=== PATIENT | female | born 1955 | race African-American/Black ===

== ENCOUNTER 2018-02-15 10:14 | Observation (INO) ==
--- NOTE | 2018-02-15 11:04 | XR ---
EXAM DATE: 02/15/2018 10:57 AM EDT AGE/SEX: 62 years / Female INDICATIONS: Mid chest pain. CLINICAL DATA: This is the patient's initial encounter. Patient reports that signs and symptoms have been present for 2 days and indicates a pain score of 4/10. MEDICAL/SURGICAL HISTORY: Hypertension. None. COMPARISON: No prior exams available for comparison. FINDINGS: PA and lateral views of the chest demonstrate a normal-sized cardiac silhouette. There is no effusion , consolidation, or pneumothorax. The bones and soft tissues demonstrate no acute abnormality. There are degenerative changes of the thoracic spine. CONCLUSION: No acute cardiopulmonary abnormality is identified. Electronically signed by: Michael Oakley MD 02/15/2018 11:03 AM EDT
[2018-02-15 12:06] LABS: Baso # (Auto) 0.1 th/mm3 (0.0-0.2); Baso % (Auto) 1.1 % (0.0-2.0); Eos # (Auto) 0.1 th/mm3 (0.0-0.4); Eos % (Auto) 1.3 % (0.0-4.0); Hematocrit 37.6 % (35.0-46.0); Hemoglobin 12.6 gm/dL (11.6-15.3); Lymph # (Auto) 1.9 th/mm3 (1.0-4.8); Lymph % (Auto) 24.6 % (9.0-44.0); Mean Corpuscular HGB Conc 33.4 % (32.0-36.0); Mean Corpuscular Hemoglobin 28.4 pg (27.0-34.0); Mean Platelet Volume 9.5 fL (7.0-11.0); Mono # (Auto) 0.5 th/mm3 (0.0-0.9); Neut # (Auto) 5.3 th/mm3 (1.8-7.7); Platelet Count 193 th/mm3 (150-450); Red Blood Count 4.42 mil/mm3 (4.00-5.30); Red Cell Distribution Width 14.6 % (11.6-17.2); White Blood Count 7.9 th/mm3 (4.0-11.0)
[2018-02-15 12:18] LABS: Activated Partial Thrombo Time 26.1 sec (24.3-30.1); Prothrombin Time 10.4 sec (9.8-11.6)
[2018-02-15 12:30] LABS: Anion Gap 10 meq/L (5-15); Blood Urea Nitrogen 16 mg/dL (7-18); Calcium 8.9 mg/dL (8.5-10.1); Carbon Dioxide 25.6 meq/L (21.0-32.0); Chloride 106 meq/L (98-107); Glomerular Filtration Rate 86 mL/min (>89); Glucose,Random 88 mg/dL (74-106); Magnesium 2.2 mg/dL (1.5-2.5); Potassium 3.1 meq/L (3.5-5.1); Sodium 142 meq/L (136-145)
[2018-02-15 12:34] LABS: Creatine Kinase 121 U/L (26-192)
[2018-02-15 12:46] LABS: Creatine Kinase MB 1.6 ng/mL (0.5-3.6)
--- NOTE | 2018-02-15 15:07 | ED ---
HPI General Chief Complaint: Chest Pain Stated Complaint: Chest Pain Time Seen by Provider: 02/15/18 14:55 Source: patient Mode of arrival: ambulatory Limitations: no limitations History of Present Illness HPI narrative: 62-year-old female presents emergency department with complaints of discomfort in the mid sternal chest since yesterday. She says that she was working yesterday when the pain started. Patient says the pain is located midsternal chest without radiation. Described as dull, squeezing. Says the pain has fluctuated in intensity and currently is mild at the worst. Says today she was at work when she drank a Pepsi. Says that she subsequently vomited and decided to come in today for evaluation. She denies associated signs or symptoms. Says she has a history of hypertension but does not take any medication for this. She has a history of hypokalemia diagnosed several years ago but does not report any issues with this. Denies hyperlipidemia, diabetes. States she has a family history of CVA but this is distant relatives. Says she had a stress test approximately 8 years ago which was normal. MD complaint: chest pain Complete Quality Measures for STEMI Alert Patients Onset (ago): day(s) Duration: constant Onset: during rest Pain location: substernal Severity: mild Relieving factors: nothing Exacerbating factors: other (Leaning forward) Related Data Allergies Allergy/AdvReac Type Severity Reaction Status Date / Time Sulfa (Sulfonamide Allergy Hives Verified 02/15/18 10:36 Antibiotics) Review of Systems Except as stated in HPI: all other systems reviewed are negative [facility] Social History Social History Second Hand Smoke Exposure: No Smoking Status: Former smoker Tobacco Type: Cigarettes How Often Do You Have a Drink Containing Alcohol: Monthly or less Recent Travel in [facility] within the Last 8 Weeks: No Recent Out of Country Travel within the Last 8 Weeks: No Exam Narrative Exam Narrative: GENERAL: Well developed, nourished in no apparent distress SKIN: Focused skin assessment warm/dry. HEAD: Atraumatic. Normocephalic. EYES: Pupils equal and round. No scleral icterus. No injection or drainage. ENT: No nasal bleeding or discharge. Mucous membranes pink and moist. NECK: Trachea midline. No JVD. CARDIOVASCULAR: Regular rate and rhythm. No murmur appreciated. RESPIRATORY: No accessory muscle use. Clear to auscultation. Breath sounds equal bilaterally. GASTROINTESTINAL: Abdomen soft, non-tender, nondistended. Hepatic and splenic margins not palpable. MUSCULOSKELETAL: No obvious deformities. No clubbing. No cyanosis. No edema. No TTP to chest wall. NEUROLOGICAL: Awake and alert. No obvious cranial nerve deficits. Motor grossly within normal limits. Normal speech. PSYCHIATRIC: Appropriate mood and affect; insight and judgment normal. Course Initial Documented Vital Signs Temperature 98.6 F 02/15/18 10:34 Pulse Rate 101 H 02/15/18 10:34 Respiratory Rate 20 02/15/18 10:34 Blood Pressure 153/86 H 02/15/18 10:34 Pulse Oximetry 100 02/15/18 10:34 Last Documented Vital Signs Temperature 98.6 F 02/15/18 10:34 Pulse Rate 92 H 02/15/18 15:35 Respiratory Rate 17 02/15/18 15:35 Blood Pressure 121/77 02/15/18 15:35 Pulse Oximetry 100 02/15/18 15:35 Clinical Decision Support HEART Score Questions History: Slightly suspicious EKG: Non-specific repolarization disturbance Age: 45-64 years Risk Factors: 1-2 Risk Factors Initial Troponin: Normal Limit Heart Score HEART Score: 3 Medical Decision Making CLARK Attestation CLARK supervised visit: Yes Attestation: I, Dr. Shi, have reviewed the advance practice practitioner's documentation and am in agreement, met with the patient face to face, made the diagnosis, and the medical decision making was done by me. *My assessment and Findings: The patient is awake and alert and in no distress at this time. Initial labs and EKG are unremarkable. This patient does have risk factors for coronary artery disease. Her symptoms sound concerning. She will be admitted to the chest pain center for further evaluation. Please see Katalina Lai PA-C's note for a more detailed H&P, final diagnosis and disposition MDM Narrative Medical decision making narrative: 62-year-old female presents emergency department for evaluation of chest pain that started yesterday. EKG shows sinus rhythm at rate 97 bpm. Labs and imaging studies ordered. Cardiac enzymes negative. Labs are unremarkable except for mild hypokalemia which appears to be chronic. Potassium 40 mEq administered. ASA 162 mg administered. Offered patient medication for her discomfort however, she declined. Discussed chest pain center admission. She agreed. Differential Diagnosis Differential Diagnosis: ACS, atypical chest pain, chest pain Lab Data Result diagrams: 02/15/18 11:22 02/15/18 11:22 Lab Results 02/15/18 02/15/18 02/15/18 Range/Units 11:22 11:22 11:22 WBC 7.9 (4.0-11.0) th/mm3 RBC 4.42 (4.00-5.30) mil/mm3 Hgb 12.6 (11.6-15.3) gm/dL Hct 37.6 (35.0-46.0) % MCV 85.0 (80.0-100.0) fL MCH 28.4 (27.0-34.0) pg MCHC 33.4 (32.0-36.0) % RDW 14.6 (11.6-17.2) % Plt Count 193 (150-450) th/mm3 MPV 9.5 (7.0-11.0) fL Neut % (Auto) 67.0 (16.0-70.0) % Lymph % (Auto) 24.6 (9.0-44.0) % Lander % (Auto) 6.0 (0.0-8.0) % Eos % (Auto) 1.3 (0.0-4.0) % Baso % (Auto) 1.1 (0.0-2.0) % Neut # (Auto) 5.3 (1.8-7.7) th/mm3 Lymph # (Auto) 1.9 (1.0-4.8) th/mm3 Lander # (Auto) 0.5 (0.0-0.9) th/mm3 Eos # (Auto) 0.1 (0.0-0.4) th/mm3 Baso # (Auto) 0.1 (0.0-0.2) th/mm3 WBC Differential . Differential Comment Auto diff final PT 10.4 (9.8-11.6) sec INR 1.0 Ratio APTT 26.1 (24.3-30.1) sec Sodium 142 (136-145) meq/L Potassium 3.1 L (3.5-5.1) meq/L Chloride 106 (98-107) meq/L Carbon Dioxide 25.6 (21.0-32.0) meq/L Anion Gap 10 (5-15) meq/L BUN 16 (7-18) mg/dL Creatinine 0.82 (0.50-1.00) mg/dL Estimated GFR 86 L (>89) mL/min Random Glucose 88 (74-106) mg/dL Calcium 8.9 (8.5-10.1) mg/dL Magnesium 2.2 (1.5-2.5) mg/dL Total Creatine Kinase 121 (26-192) U/L CK-MB (CK-2) 1.6 (0.5-3.6) ng/mL Troponin I Less than 0.02 L (0.02-0.05) ng/mL Imaging Data Radiologist's impression: Chest X-Ray 02/15/18 10:37 CONCLUSION: No acute cardiopulmonary abnormality is identified. Discharge Plan Discharge Disposition Patient Disposition: 30 Still Patient Discharge Condition Condition: Stable Discharge Details Diagnosis: Chest pain, Chronic hypokalemia Physicians Team ED Provider: Pebbles Shi ED Midlevel Provider: Katalina Lai Primary Care Provider: [facility], Attending Provider: John Jeffers Status ED Status: Admitted Observation Patient
[2018-02-15] MEDS ORDERED: Acetaminophen 500 MG Tablet PO PRN (15:22)
--- NOTE | 2018-02-15 18:57 | ECG ---
Date Performed: 02/15/2018 Time Performed: 11:47:14 PTAGE: 62 years EKG: Sinus rhythm INFERIOR MYOCARDIAL INFARCTION ABNORMAL ECG Compared to PREVIOUS TRACING , old inferior infarct pattern is new. PREVIOUS TRACIN02/15/2018 11.0 8 DOCTOR: Elton Merino Interpretating Date/Time 02/15/2018 18:56:07
[2018-02-15 21:45] LABS: Creatine Kinase 150 U/L (26-192)
--- NOTE | 2018-02-16 10:24 | P.HPCA ---
History of Present Illness Primary Care Physician: [facility] Chief Complaint: Chest pain History of Present Illness: This is a 62-year-old female that presents to ED via private vehicle with a complaint of developing a discomfort in the center of her chest that began Thursday around 6:00 in the morning and was constantly there for 2 days. It went away sometime yesterday. Found nothing to worsen or improve it. She denies having shortness of breath, nausea, or diaphoresis. Denies recent illness. Denies fevers or chills. Denies recent travel. Denies history of CAD but cannot recall recent stress testing. States her last stress test was about 15 years ago was okay. Patient does not smoke cigarettes. Denies family history of CAD. - Diagnosis (1) Chest pain (2) Hypertension (3) Hypokalemia Inpatient Certification: I certify that the inpatient services were ordered in accordance with Medicare regulations governing the order. This includes certification that hospital inpatient services are reasonable and necessary and in the case of services not specified as inpatient-only under 42 CFR 419.22(n), that they are appropriately provided as inpatient services in accordance to with the 2-midnight benchmark under 43 CFR 412.3(e) Review of Systems General: Patient denies fevers, chills, and recent travel. HEENT: Patient denies headache, sore throat, difficulty swallowing. Cardiovascular: Has the chest discomfort as mentioned above. Denies sensation of heart beating rapidly or irregularly. No syncope. Denies diaphoresis. Respiratory: Denies shortness of breath or inspirational chest discomfort. Denies coughing wheezing or hemoptysis. GI: Patient denies nausea, vomiting, diarrhea, abdominal pain, bloody stools. Musculoskeletal: Patient denies joint pain or edema. Denies calf pain or edema. Neurovascular: Patient denies numbness, tingling, weakness in extremities. Denies headache. Endocrine: Denies polyuria and polydipsia. Hematologic: Denies easy bruising. Skin: Denies rash or itching. PMFSH - History History Provided By: Patient - Tobacco History Second Hand Smoke Exposure: No Tobacco Use In Past 30 Days: No Smoking Status: Never smoker Tobacco Type: Cigarettes - Alcohol History How Often Do You Have a Drink Containing Alcohol: Monthly or less - Substance Use History Substance History: No History of Abuse - Travel History Recent Travel in the [facility] Within the Last 8 Weeks: No Recent Travel Out of the Country Within the Last 8 Weeks: No - Immunization History Tetanus Immunization: <5 Years Medications and Allergies Active Medications: Active Medications Acetaminophen (Tylenol) 500 mg PO Q4H PRN PRN Reason: HEADACHE Sodium Chloride (Ns Flush) 2 ml IV.FLUSH PRN PRN PRN Reason: FLUSH AFTER USING IV ACCESS Sodium Chloride (Ns Flush) 2 ml IV.FLUSH BID FLORA Last Admin: 02/15/18 23:56 Dose: 2 ml Allergies Allergy/AdvReac Type Severity Reaction Status Date / Time Sulfa (Sulfonamide Allergy Hives Verified 02/15/18 10:36 Antibiotics) Home Medications Medication Instructions Recorded Confirmed Type amlodipine 5 mg PO DAILY 02/15/18 02/15/18 History hydrochlorothiazide 25 mg PO DAILY 02/15/18 02/15/18 History lisinopril 20 mg PO DAILY 02/15/18 02/15/18 History Exam Vital signs: Vital Signs 02/15/18 10:34 02/15/18 15:35 02/15/18 16:59 Temperature 98.6 F Pulse Rate 101 H 92 H Respiratory Rate 20 17 Blood Pressure 153/86 H 121/77 Pulse Oximetry 100 100 98 02/15/18 17:38 02/15/18 18:43 02/15/18 19:17 Temperature 98.0 F Pulse Rate 89 86 94 H Respiratory Rate 17 18 Blood Pressure 161/79 H 170/96 H Pulse Oximetry 100 98 02/15/18 20:00 02/16/18 00:00 02/16/18 00:17 Temperature 98.5 F 98.5 F Pulse Rate 94 H 78 84 Respiratory Rate 16 16 Blood Pressure 154/85 H 126/69 Pulse Oximetry 100 99 02/16/18 02:00 02/16/18 04:00 02/16/18 08:00 Temperature 98.4 F 96.5 F L Pulse Rate 77 79 83 Respiratory Rate 16 20 Blood Pressure 111/61 137/81 Pulse Oximetry 100 99 Intake & Output 02/15/18 02/16/18 02/16/18 18:59 06:59 18:59 Weight 77.3 kg Other: Weight On Admission 77.3 kg Narrative: GENERAL: This is a well-nourished, well-developed patient, in no apparent distress. Patient speaks in clear complete sentences. Patient is pleasant. HEENT: Head is atraumatic and normocephalic. Neck is supple without lymphadenopathy and trachea is midline. No JVD or carotid bruits. CARDIOVASCULAR: Regular rate and rhythm without murmurs, gallops, or rubs. RESPIRATORY: Clear to auscultation. Breath sounds equal bilaterally. No wheezes , rales, or rhonchi. Chest wall is nontender. No use of accessory muscles. GASTROINTESTINAL: Abdomen is nontender, nondistended. Abdomen soft. No obvious pulsatile mass or bruit. No CVA tenderness. Strong femoral pulses bilaterally. Normal bowel sounds in all quadrants. MUSCULOSKELETAL: Patient is moving upper and lower extremities freely. No calf tenderness or edema, no Homans sign. Strong pulses in upper and lower extremities. NEUROLOGICAL: Patient is alert and oriented. Cranial nerves 2-12 are grossly intact. No focal deficits and speech is clear. SKIN: No rash and turgor is normal. Results 02/15/18 11:22 02/15/18 11:22 Cardiac Enzymes 02/15/18 02/15/18 02/15/18 Range/Units 11:22 16:30 16:30 CK-MB (CK-2) 1.6 (0.5-3.6) ng/mL Troponin I Less than 0.02 L Less than 0.02 L Cancelled (0.02-0.05) ng/mL 02/15/18 Range/Units 20:40 CK-MB (CK-2) (0.5-3.6) ng/mL Troponin I Less than 0.02 L (0.02-0.05) ng/mL Coagulation 02/15/18 Range/Units 11:22 PT 10.4 (9.8-11.6) sec APTT 26.1 (24.3-30.1) sec CBC 02/15/18 Range/Units 11:22 WBC 7.9 (4.0-11.0) th/mm3 RBC 4.42 (4.00-5.30) mil/mm3 Hgb 12.6 (11.6-15.3) gm/dL Hct 37.6 (35.0-46.0) % Plt Count 193 (150-450) th/mm3 Neut # (Auto) 5.3 (1.8-7.7) th/mm3 Lymph # (Auto) 1.9 (1.0-4.8) th/mm3 Warren # (Auto) 0.5 (0.0-0.9) th/mm3 Eos # (Auto) 0.1 (0.0-0.4) th/mm3 Baso # (Auto) 0.1 (0.0-0.2) th/mm3 Comprehensive Metabolic Panel 02/15/18 Range/Units 11:22 Sodium 142 (136-145) meq/L Potassium 3.1 L (3.5-5.1) meq/L Chloride 106 (98-107) meq/L Carbon Dioxide 25.6 (21.0-32.0) meq/L BUN 16 (7-18) mg/dL Creatinine 0.82 (0.50-1.00) mg/dL Calcium 8.9 (8.5-10.1) mg/dL Intake and Output 02/15/18 02/16/18 02/16/18 22:59 06:59 14:59 Other: Weight 77.3 kg Weight On Admission 77.3 kg EKG interpretations - EKG EKG shows: sinus rhythm (EKGs are sinus rhythm with nonspecific inferior T wave changes.) Caprini VTE Risk Assessment Caprini VTE Risk Assessment: No/Low Risk (score <= 1) Caprini Risk Assessment Model: Point Value = 1 Point Value = 2 Point Value = 3 Point Value = 5 Age 41-60 Minor surgery BMI > 25 kg/m2 Swollen legs Varicose veins or History of unexplained or recurrent spontaneous Oral contraceptives or hormone replacement Sepsis (< 1 month) Serious lung disease, including pneumonia (< 1 month) Abnormal pulmonary function Acute myocardial infarction Congestive heart failure (< 1 month) History of inflammatory bowel disease Medical patient at bed rest Age 61-74 Arthroscopic surgery Major open surgery (> 45 min) Laparoscopic surgery (> 45 min) Malignancy Confined to bed (> 72 hours) Immobilizing plaster cast Central venous access Age >= 75 History of VTE Family history of VTE Factor V Leiden Prothrombin [id number] Lupus anticoagulant Anticardiolipin antibodies Elevated serum homocysteine Heparin-induced thrombocytopenia Other congenital or acquired thrombophilia Stroke (< 1 month) Elective arthroplasty Hip, pelvis, or leg fracture Acute spinal cord injury (< 1 month) Prophylaxis Regimen: Total Risk Factor Score Risk Level Prophylaxis Regimen 0-1 Low Early ambulation 2 Moderate Order ONE of the following: *Sequential Compression Device (SCD) *Heparin 5000 units SQ BID 3-4 Higher Order ONE of the following medications: *Heparin 5000 units SQ TID *Enoxaparin/Lovenox 40 mg SQ daily (WT < 150 kg, CrCl > 30 mL/min) *Enoxaparin/Lovenox 30 mg SQ daily (WT < 150 kg, CrCl > 10-29 mL/min) *Enoxaparin/Lovenox 30 mg SQ BID (WT < 150 kg, CrCl > 30 mL/min) AND/OR *Sequential Compression Device (SCD) 5 or more Highest Order ONE of the following medications: *Heparin 5000 units SQ TID (Preferred with Epidurals) *Enoxaparin/Lovenox 40 mg SQ daily (WT < 150 kg, CrCl > 30 mL/min) *Enoxaparin/Lovenox 30 mg SQ daily (WT < 150 kg, CrCl > 10-29 mL/min) *Enoxaparin/Lovenox 30 mg SQ BID (WT < 150 kg, CrCl > 30 mL/min) AND *Sequential Compression Device (SCD) Assessment and Plan - Assessment (1) Chest pain Code(s): R07.9 - Chest pain, unspecified Status: Acute (2) Hypertension Code(s): I10 - Essential (primary) hypertension Status: Acute (3) Hypokalemia Code(s): E87.6 - Hypokalemia Status: Acute - Plan * Chest pain: Patient has had serial cardiac enzymes and EKGs for ruling out purposes. She has been seen by Dr. Mesa of cardiology in the chest pain center and will undergo a Romeo protocol ETT. She will be discharged home if her stress test is nonischemic with instructions to follow-up with PCP. Return to ED for interval issues. * Hypertension: Continue medication. Patient is stable at this time. She is agreeable to this plan. H&P: Quality - VTE Deep Vein Thrombosis/Pulmonary Embolism Present on Admission: No (1) Chest pain Qualifiers: Chest pain type: other chest pain Qualified Code(s): R07.89 - Other chest pain; R07.8 - Other chest pain
--- NOTE | 2018-02-16 16:41 | TR ---
Date Performed: 02/16/2018 Time Performed: 09:57:58 DOCTOR: Lyubov Mesa DRUG LIST: CLINICAL HISTORY: REASON FOR TEST: REASON FOR ENDING: OBSERVATION: CONCLUSION: CHARLOTTE PROTOCOL. NO CP. TEST STOPPED AFTER EXCEEDING GOAL HR SECONDARY TO SOB AND LEG FATIGUE.Maximum WT=855 % Max HR Achieved=93.0% Maximum DY=769/72 Total Exercise Time=4:04 COMMENTS: No ischemia
--- NOTE | 2018-02-16 16:45 | ECG ---
Date Performed: 02/15/2018 Time Performed: 16:56:20 PTAGE: 62 years EKG: Sinus rhythm INFERIOR MYOCARDIAL INFARCTION ABNORMAL ECG Since PREVIOUS TRACING , no significant change noted PREVIOUS TRACIN02/15/2018 11.47 DOCTOR: Lyubov Mesa Interpretating Date/Time 02/16/2018 16:45:05
== END 2018-02-16 13:30 | disposition home or self-care (01) ==
LOC: NEDA 10:14 → NEPFCDU 10:14 → NEPD 10:14 → NEPFCDU 18:01
PROVIDERS: ADMIT Internal Medicine Cardiovascular Disease; ATTEND Internal Medicine Cardiovascular Disease